=== PATIENT | female | born 1945 | race Caucasian/White ===

== ENCOUNTER → 2019-10-25 | Outpatient (CLI) | payer MEDICARE ==
--- NOTE | 2019-10-25 08:39 | MR ---
MRI CERVICAL SPINE: CLINICAL HISTORY: Cervicalgia. Cervical disc disorder C4-C5 level with radiculopathy. Status post art hrodesis. Spondylosis without myelopathy. Spondylolisthesis. C5-C6 and C6-C7 fusion with hardware. C4 -C5 spondylolisthesis. Postlaminectomy syndrome. All per order. Neck pain with pain into shoulders an d arms including pain or weakness in both arms and fingers since 1984 per patient. TECHNIQUE: Multiplanar, multisequence imaging of the cervical spine is performed without and with IV contrast, 7 cc of gadolinium was given intravenously. COMPARISON: None. FINDINGS: Sagittal images of the cervical spine show the craniocervical junction to appear within nor mal limits. The cervical and upper thoracic spinal cord is normal in caliber and signal. There is ar tifact from surgical hardware C5-C6 level. There is slight grade 1 anterolisthesis C4 on C5. The caitlyn tebral body and intravertebral disk heights are normal above and below surgical levels. Suspect large hemangioma involving C4 vertebra. No abnormal postcontrast enhancement is seen. Axial images show C2-C3 level to appear within normal limits. Axial images at C3-C4 level show right paracentral/foraminal spur disc complex effacing anterolateral thecal sac with uncovertebral facet degenerative changes causing mild left and moderate to severe ri ght-sided neural foraminal narrowing. Axial images at C4-C5 level show spondylolisthesis with posterior spur disc complex effacing anterior thecal sac and causing mild bilateral neural foraminal narrowing. Axial images at C5-C6 level show artifact from fusion hardware. There is suspected posterior spurring effacing anterior thecal sac of the ventral surface of spinal cord with patent bilateral neural fora deshawn. Axial images at C6-C7 level show artifact from surgical hardware, there is mild effacement of anterio r spinal canal due to suspected bony projection, bilateral neural foramina are patent. Axial images at C7-T1 level are both within normal limits. Thyroid gland appears unremarkable. Focal moderate eccentric plaque right carotid bulb cause stenosis approaching but felt under 50% near axial image 36. IMPRESSION: Postsurgical change C5-C6 level. Spondylolisthesis C4-C5 level. Multilevel degenerative c hanges as detailed above. Most prominent spur disc complex right paracentral/foraminal level at C3-C4 level noted.
== END | disposition home or self-care (01) ==
LOC: RADMRIMAIN 07:27
PROVIDERS: ATTEND Orthopaedic Surgery Orthopaedic Surgery of the Spine
DX: M43.12 Spondylolisthesis, cervical region (principal); M47.812 Spondylosis without myelopathy or radiculopathy, cervical region; Z98.1 Arthrodesis status
CPT/HCPCS: 72156; A9585